=== PATIENT | female | born 1965 | race Caucasian/White ===

== ENCOUNTER 2016-10-09 13:50 | Emergency (ER) | payer SELFPAY ==
--- NOTE | ~2016-10-09 | ER ---
PATIENT'S NAME: LORRAINE REAA Dion [facility] AGE: 51 Y [address] ROOM: [place] [address] LOCATION: ED ADMIT DATE: 10/09/2016 ER/Outpatient Report DISCHARGE DATE: 10/09/2016 FAMILY PHYSICIAN: PHYSICIAN, NO ATTENDING PHYSICIAN: Josef Cox Time of Arrival: 1400 hours. Time of Evaluation: 1410 hours. CHIEF COMPLAINT: Right-sided back pain. HISTORY OF PRESENT ILLNESS: The patient states for about 14 hours now, she has had pain under the right rib area that radiates around to her right back area. It is there all the time. She has had chills off and on. Has had urinary frequency, but no discomfort. Has been nauseated and vomited. Did have diarrhea. Did not notice any blood in the diarrhea or the vomitus. Last diarrhea stool was this morning. She has not had pain like this before. ALLERGIES: NO KNOWN ALLERGIES. CURRENT MEDICATIONS: On the chart and reviewed by me. PAST MEDICAL HISTORY: Depression and anxiety. PAST SURGICAL HISTORY: Knee scope and cholecystectomy in 2011. SOCIAL HISTORY: She smokes half a pack per day. Denies any use of drugs or alcohol. 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 REVIEW OF SYSTEMS: All negative other than those mentioned in the HPI. PHYSICAL EXAMINATION: VITAL SIGNS: She weighed 72 kg, blood pressure is 125/86, pulse of 105, respirations 20, temperature of 97, and O2 saturations 96% on room air. GENERAL: She is awake, alert, and oriented x4. SKIN: [place], warm, and dry. RESPIRATIONS: Even and nonlabored. Lung sounds are clear throughout. PATIENT'S NAME: LAVON REA [facility] AGE: 51 Y [address] ROOM: [place] [address] LOCATION: ED ADMIT DATE: 10/09/2016 ER/Outpatient Report DISCHARGE DATE: 10/09/2016 FAMILY PHYSICIAN: PHYSICIAN, NO ATTENDING PHYSICIAN: Josef Cox HEART: Regular rate and rhythm. ABDOMEN: Soft. Nondistended. Bowel sounds are present. She is quite tender in the right upper quadrant area. Does have some general tenderness throughout the left upper quadrant area also. EMERGENCY DEPARTMENT COURSE: Saline lock was initiated. Fluids of normal saline were started. She was given Zofran 4 mg IV. CBC shows a white count of 11.6, hemoglobin of 15.3, and hematocrit of 44.8. Her Chem panel: Sodium is 145, potassium is 3.8, chloride is 112, BUN is 6 with a creatinine of 0.8. Amylase was 33. Lipase was 302. Lactate was 3.2. Procalcitonin was normal. Clean-catch UA was within normal limits. The patient states she does give plasma on a regular basis at least 2 to 3 times per week. Nausea did calm down. CT scan of the abdomen was completed. Radiology reports no acute findings. She reports the pain has not changed. She was given a second liter of fluids and Toradol 15 mg IM. She reports that did ease up the discomfort. IMPRESSION: Right upper quadrant abdominal pain. PLAN: Home. Rest. Fluids. Advised avoiding milk type products for a week and suggested to eat easy to digest type foods. Avoiding the greasy fried items. I did encourage her to try some omeprazole [id number]. If her symptoms persist or worsen, she is to follow up with her primary provider. She verbalizes understanding. JAVIER MERCER APRN FOR [facility]ERRER[facility]/oj /[id number] d: 10/10/162 t: 10/23/16 0959, OUTPATIENT REPORT
[2016-10-09 14:27] LABS: BASOPHIL % 0.3 %; EOSINOPHIL # 0.2 K/uL (0.0-0.5); EOSINOPHIL % 1.9 %; HEMATOCRIT 44.8 % (33.0-46.0); HEMOGLOBIN 15.3 g/dL (10.0-15.0); IMMATURE GRANULOCYTE % 0.3 %; LYMPHOCYTE # 3.7 K/uL (0.8-4.0); LYMPHOCYTE % 32.3 %; MCH 32.3 pg (27.0-34.0); MCHC 34.2 gm/dL (32.0-36.5); MCV 94.5 fl (83.0-98.0); MONOCYTE # 0.7 K/uL (0.0-1.0); MONOCYTE % 5.6 %; MPV 8.4 fl (9.4-12.4); NEUTROPHIL # (ANC) 6.9 K/uL (1.8-7.8); NEUTROPHIL % 59.6 %; NRBC % 0 /100WBC (0-0.00); PLATELET COUNT 327 K/uL (150-450); RBC 4.74 M/uL (3.50-5.50); RDW-CV 12.8 % (11.9-14.6); WBC 11.6 K/uL (4.0-11.0)
[2016-10-09 14:51] LABS: ANION GAP 14.8 (10.0-19.0); CALCIUM 8.2 mg/dL (8.5-10.5); CREATININE 0.8 mg/dL (0.5-1.1); POTASSIUM 3.8 mMol/L (3.7-5.1); TOTAL BILIRUBIN 0.4 mg/dL (0.0-1.5); TOTAL PROTEIN 5.8 g/dL (6.0-8.4)
[2016-10-09 15:33] LABS: BILIRUBIN URINE NEGATIVE (NEGATIVE); BLOOD URINE NEGATIVE /UL (NEGATIVE); COLOR URINE YELLOW (YELLOW); GLUCOSE URINE NEGATIVE (NEGATIVE); KETONE URINE NEGATIVE (NEGATIVE); LEUKOCYTES URINE NEGATIVE /UL (NEGATIVE); NITRITE URINE NEGATIVE (NEGATIVE); PROTEIN URINE NEGATIVE (NEGATIVE); SPEC GRAVITY URINE 1.005 (1.003-1.035); TURBIDITY URINE CLEAR (CLEAR); UROBILINOGEN URINE NORMAL (NORMAL)
== END 2016-10-09 17:17 | disposition disaster alternative care site (69) ==
LOC: GMED 13:50
PROVIDERS: Nurse Practitioner Family
DX: R10.11 Right upper quadrant pain (principal); F41.9 Anxiety disorder, unspecified; F32.9 Major depressive disorder, single episode, unspecified; Z79.899 Other long term (current) drug therapy; Z90.49 Acquired absence of other specified parts of digestive tract; Z98.890 Other specified postprocedural states
CPT/HCPCS: J1885; J2405; J7030